=== PATIENT | female | born 1945 | race Hispanic/Latino ===

== ENCOUNTER 2017-05-17 07:40 | Day surgery (SDC) | payer MEDICAID ==
[~2017-05-17] VITALS: Ht 154.9 cm; Wt 48.5 kg
[~2017-05-17 07:40] MED LIST: SODIUM CHLORIDE 0.9% 1000ML 1,000 ML IV ONE
[2017-05-17 07:45] VITALS: BP 169/70
[2017-05-17] MEDS ORDERED: ESOM40CA PO (08:49)
[2017-05-17] MEDS ORDERED: METF10004 PO (08:49)
[2017-05-17] MEDS ORDERED: ATOR40TA69 PO (08:50)
[2017-05-17] MEDS ORDERED: VALS320T15 PO (08:50)
[2017-05-17] MEDS ORDERED: MELO-106 PO (08:51)
[2017-05-17] MEDS ORDERED: GLIP10TA9 PO (08:51)
[2017-05-17] MEDS ORDERED: TRAZ-144 PO (08:52)
[2017-05-17] MEDS ORDERED: GABA-529 PO (08:53)
[2017-05-17] MEDS ORDERED: ALEN70TA47 PO (08:54)
[2017-05-17] MEDS ORDERED: ASPI-555 PO (08:54)
[2017-05-17] MEDS ORDERED: FENTANYL CITRATE PF 50 MCG/1 ML 2ML VIAL ONE (10:17)
[2017-05-17] MEDS ORDERED: PROPOFOL 10 MG/ML 20ML VIAL IV ONE ×2 (10:17→10:36)
[2017-05-17] MEDS ORDERED: LIDOCAINE HCL 1% 20 ML VIAL ONE (10:17)
== END 2017-05-17 11:25 | disposition home or self-care (01) ==
LOC: DAH 07:40 → ENDO 07:40
PROVIDERS: ATTEND Internal Medicine
DX: K63.5 Polyp of colon (principal); K57.30 Diverticulosis of large intestine without perforation or abscess without bleeding; K22.2 Esophageal obstruction; K22.8 Other specified diseases of esophagus; K31.89 Other diseases of stomach and duodenum; K21.9 Gastro-esophageal reflux disease without esophagitis; I10 Essential (primary) hypertension; E78.5 Hyperlipidemia, unspecified; E11.9 Type 2 diabetes mellitus without complications; M19.90 Unspecified osteoarthritis, unspecified site; M81.0 Age-related osteoporosis without current pathological fracture; Z90.710 Acquired absence of both cervix and uterus; Z98.890 Other specified postprocedural states; Z98.49 Cataract extraction status, unspecified eye
CPT/HCPCS: 43239; 45380; 82948 ×2; 88305; 88312; 88342; 93005; A4606; J2704 ×2; J3010; J7030

== ENCOUNTER → 2019-03-07 | Outpatient (CLI) | payer OTHER ==
[~2019-03-07] MED LIST changes: +ALEN70TA10 PO; +ASPI-555 PO; +ATOR40TA69 PO; +ESOM40CA PO; +GABA-529 PO; +GLIP10TA9 PO; +MELO-106 PO; +METF-446 PO; -SODIUM CHLORIDE 0.9% 1000ML 1,000 ML IV ONE; +TRAZ-185 PO; +VALS320T16 PO
== END | disposition home or self-care (01) ==
LOC: RAH 10:58
PROVIDERS: ATTEND Internal Medicine Cardiovascular Disease
DX: Z13.6 Encounter for screening for cardiovascular disorders (principal)
CPT/HCPCS: 75571